=== PATIENT | male | born 1970 | race Caucasian/White ===

== ENCOUNTER 2018-11-25 17:09 | Emergency (ER) | payer OTHER, SELFPAY ==
[2018-11-25 17:10] VITALS: BP 161/108; PULSE 85; RESP 18; TEMP 36.6; O2SAT 99; BMI 32.3
--- NOTE | 2018-11-25 17:30 | ED.DCSUM_ITS ---
- ER Visit Summary Date of Service: 11/25/18 Chief Complaint: [] Left flank pain today seen in outlying facility near [place] History of Present Illness: The patient is a 48 M [] was in his usual state of health when he suddenly began having left flank pain he was seen outlying facility near [place] diagnosed with a 3 mm distal left UVJ stone his symptoms improved he was discharged follow-up with his urologist in [place] however on the way back he had exacerbation of the pain he was brought to this emergency department. No fever no cough no trauma normal bowel bladder habits otherwise he denies any past history this is similar to kidney stones history he had a few years ago when he was seen by [place] [facility] his symptoms eventually passed and he did not require surgery Physical Examination: [] Vital signs are within normal range General, no distress resting comfortably HEENT is generally unremarkable The neck is supple no adenopathy Cardiovascular, regular rate and rhythm Lungs, clear bilateral Abdomen, soft nontender Mild left CVAT Extremities, no clubbing cyanosis or edema Neurologic, awake alert answering questions appropriately moving all 4 extremities Test Results: [] Emergency Department Course and Treatment: [] Reviewed the CAT scan report which is attached to the chart that showed the stone as above nothing else acute at this time I explained this to the family will start IV fluids pain management screening labs if his pain can be controlled he wants to go home so he can follow-up with his urologist in [place] Treatment Plan: [] Patient's studies are generally unremarkable there is some hematuria, on reevaluation he is feeling much better we discussed inpatient versus outpatient management he wants to go home he has Percocet to use, he was given a dose of Flomax, here he will follow-up with his urologist in [place] and return for change in symptoms Disposition: [] Home improved stable Impression: [] Left flank pain related to 3 mm UVJ stone improved This note was generated with [employer] dictation software. It may contain incorrect words, spelling, and punctuation that were not noted in review of the chart pr ior to signing ED Disposition - Plan for ED Patient: Referrals: [facility],Out of [NON-STAFF] -
[2018-11-25] MEDS: 0.9% Normal Saline 1,000 ML 250 ML IV (17:34)
[2018-11-25] MEDS: morphine 8 MG/ML Syringe IV (17:35)
[2018-11-25] MEDS: Ondansetron 4 MG/2 ML Vial IV (17:35)
[2018-11-25] MEDS: Ketorolac 30 MG/ML Syringe IV (17:35)
[2018-11-25 17:39] LABS: Absolute Lymphocyte Count 1.33 X10^3/ul (0.83-4.51); Basophil# 0.02 X10^3/uL; Basophil% 0.2 % (0-1); Eosinophils% 3.2 % (0-5); Hematocrit 43.5 % (40-54); Hemoglobin 14.8 g/dl (13.0-16.5); Lymphocyte # 1.33 X10^3/ul (4.0); Mean Corpuscular Hgb 33.4 pg (27.0-32.0); Mean Corpuscular Volume 98.2 fL (80-94); Mean Platelet Vol. 10.7 fl (6.2-12.0); Monocyte# 0.88 X10^3/uL; Monocyte% 9.2 % (0-10); Neutrophil # 6.97 X10^3/uL (2.7-7.7); Neutrophil % 73.2 % (47-70); Platelet Count 141 K/mm3 (150-450); RBC Distribution Width CV 13.6 % (11.6-14.6); RBC Distribution Width SD 48.7 fl (35.1-43.9); Red Blood Count 4.43 M/mm3 (4.6-6.2); White Blood Count 9.5 K/mm3 (4.4-11.0)
[2018-11-25 17:40] LABS: POSITIVE COUNT NO; POSITIVE DIFFERENTIAL NO; POSITIVE MORPHOLOGY NO
[2018-11-25 18:00] LABS: Anion Gap 7 (5-15); BUN 14 mg/dL (7-18); BUN/Creat Ratio 10.7 RATIO (10-20); Calcium,Total 8.3 mg/dL (8.5-10.1); Chloride 108 mmol/L (98-107); Creatinine, Serum 1.31 mg/dL (0.70-1.30); EST Glomerular Filtration Rate 61 mL/min (>60); Est Glom Filt Rate - Afr Amer 74 mL/min (>60); Estimated Creatinine Clearance 71.85 ml/min; Glucose 110 mg/dL (74-106); Sodium Level 137 mmol/L (136-145)
[2018-11-25] MEDS: HYDROmorphone 1 MG/ML Syringe IV ×2 (18:10→18:51)
[2018-11-25 18:53] VITALS: BP 140/84; PULSE 91; RESP 16; O2SAT 95
[2018-11-25 19:01] VITALS: BP 147/86; PULSE 92; RESP 18; O2SAT 95
[2018-11-25 19:18] LABS: Color, Urine Yellow (Yellow); Glucose, Dipstick Normal (Normal); Ketone-Dipstick 5 mg/dl (Negative); Leukocyte Esterase-Dipstick Negative /ul (Negative); Nitrite-Dipstick Negative (Negative); Occult Blood-Urine 250 /ul (Negative); Protein-Dipstick 30 mg/dl (Negative); Urine Clarity Sl. Cloudy (Clear); Urine Urobilinogen 1 mg/dl (Normal)
[2018-11-25 19:24] LABS: Urine Bilirubin Dipstick 1 mg/dL (Negative)
[2018-11-25 19:26] LABS: Red Blood Cells-Urine 25-50 SEEN /hpf (0-5); White Blood Cells 0-5 SEEN /hpf (0-5)
[2018-11-25 19:27] LABS: Bacteria RARE /hpf (None Seen); Mucous, Urine 2+ /hpf (<or=2+); Squamous Epithelial Cells - UA 0-5 SEEN /hpf (0-5)
[2018-11-25 20:27] VITALS: BP 148/85; PULSE 91; RESP 16; O2SAT 92
--- NOTE | 2018-11-25 20:27 | ED.DEP ---
ED Disposition - Plan for ED Patient: Instructions: ED Stone Renal [facility] Referrals: [facility],Out of [NON-STAFF] - Additional Instructions: Follow-up with your doctors
[2018-11-25 20:37] VITALS: BP 144/94; PULSE 91; RESP 16; O2SAT 97
[2018-11-25] MEDS: Tamsulosin HCl 0.4 MG Capsule PO (20:51)
--- NOTE | 2018-11-25 20:53 | ED.RN ---
IV DC'ED, CATHETER INTACT, SMALL GAUZE DRESSING PLACED. DISCHARGE INSTRUCTIONS GIVEN TO AND REVIEWED WITH PATIENT, PATIENT DENIES QUESTIONS OR CONCERNS AND VOICES UNDERSTANDING OF DISCHARGE INSTRUCTIONS. PT AMBULATES OUT OF ROOM WITHOUT DIFFICULTY.
== END 2018-11-25 20:56 | disposition home or self-care (01) ==
LOC: ED 17:54
PROVIDERS: Emergency Provider Emergency Medicine
DX: N20.1 Calculus of ureter (principal); R10.9 Unspecified abdominal pain; Z87.442 Personal history of urinary calculi
CPT/HCPCS: 80048; 81001; 85025; 96361; 96374; 96375; 96376; 99283; J7030; A4216; J2405